=== PATIENT | male | born 1945 | race Caucasian/White ===

== ENCOUNTER → 2017-12-14 08:18 | Outpatient (CLI) | payer OTHER, SELFPAY ==
[2017-12-14 09:44] LABS: Hemoglobin A1C% w Est Avg Glu 6.2 % (4.0-6.0)
[2017-12-14 09:50] LABS: Alanine Aminotransferase 37 IU/L (21-72); Albumin 3.9 g/dL (3.5-5.0); Albumin Globulin Ratio 1.4 (1.0-2.8); Alkaline Phosphatase 69 U/L (38-126); Aspartate Aminotransferase 24 IU/L (17-59); Bilirubin Total 0.4 mg/dL (0.2-1.3); Blood Urea Nitrogen 16 mg/dL (9-20); Calcium 8.5 mg/dL (8.4-10.2); Carbon Dioxide 29 mmol/L (22-32); Chloride 102 mmol/L (98-107); Cholesterol 118 mg/dL (140-199); Estimated Glomerular Filt Rate > 60.0 mL/min (>60); Globulin 2.7 g/dL (1.7-4.1); Glucose 118 mg/dL (80-110); HDL Cholesterol 32 mg/dL (40-60); HEMOLYSIS < 15 (0-50); LDL Cholesterol Calculated 63 mg/dL (<100); Potassium 4.3 mmol/L (3.4-5.1); Sodium 141 mmol/L (137-145); Total Protein 6.6 g/dL (6.3-8.2); Triglycerides 114 mg/dL (35-150)
== END ==
PROVIDERS: PCP Internal Medicine; Visit Provider Internal Medicine
DX: E03.9 Hypothyroidism, unspecified (principal); E11.51 Type 2 diabetes mellitus with diabetic peripheral angiopathy without gangrene; E11.69 Type 2 diabetes mellitus with other specified complication; E78.5 Hyperlipidemia, unspecified; I10 Essential (primary) hypertension; I25.10 Atherosclerotic heart disease of native coronary artery without angina pectoris
CPT/HCPCS: 36415; 80053; 80061; 83036; 84443

== ENCOUNTER → 2018-05-21 11:23 | Outpatient (CLI) | payer OTHER, SELFPAY ==
--- NOTE | 2018-05-21 | DI.RAD.S_ITS ---
PROCEDURE: XR KNEE RT 3V INDICATIONS: RIGHT KNEE PAIN TECHNIQUE: 3 views of the knee were acquired. COMPARISON: None. FINDINGS: Bones: No fractures or dislocations. No suspicious bony lesions. Soft tissues: No joint effusion. No suspicious soft tissue calcifications. IMPRESSION: No source of knee pain is seen except for what appears to be a mild degree of thinning of the joint space at the lateral facet of the patellofemoral joint. Dictated by: Darius Stern M.D. on 05/21/2018 at 13:26 Approved by: Darius Stern M.D. on 05/21/2018 at 13:26
== END ==
PROVIDERS: PCP Internal Medicine; Visit Provider Internal Medicine
DX: M25.561 Pain in right knee (principal)
CPT/HCPCS: 73562

== ENCOUNTER → 2018-11-29 11:08 | Outpatient (CLI) | payer OTHER, SELFPAY ==
--- NOTE | 2018-11-29 | DI.CT.S_ITS ---
PROCEDURE: CT ABDOMEN PELVIS WO CON INDICATIONS: KIDNEY STONES TECHNIQUE: Noncontrast 5 mm thick sections acquired from the diaphragms to the symphysis. 5 mm coronal and sagittal reformats were then performed. For radiation dose reduction, the following was used: automated exposure control, adjustment of mA and/or kV according to patient size. COMPARISON: None. FINDINGS: Image quality: Excellent. ABDOMEN: Lung bases: Lung bases are clear. Heart size is normal. Anterior chest metallic foreign bodies compatible with sternotomy wires/surgical clips. Solid organs: Liver is normal in size. Gallbladder is unremarkable. Pancreas is normal in contours. Spleen is normal in size. No adrenal nodules. Kidneys are normal in size, without hydronephrosis or nephrolithiasis. There is a 2.7 cm oval cyst arising from the lateral interpolar region of the right kidney measuring -4 Hounsfield units in attenuation. Peritoneum and bowel: Unenhanced bowel loops demonstrate normal wall thickness and caliber. No free fluid or air. Normal appendix best seen on axial image 58 of series 2. Diffuse colonic diverticulosis, worst within the descending and sigmoid colon. Nodes and vessels: There is moderate diffuse calcified plaque of the abdominal aorta and branch vessels. There is an infrarenal abdominal aortic aneurysm with the infrarenal abdominal aorta measuring 4.0 cm anteroposterior by 4.0 cm transverse. Miscellaneous: Subcentimeter fat containing umbilical hernia. PELVIS: Genitourinary: There is an indistinct and difficult to measure mass/abnormal bladder wall thickening along the left anterior inferior bladder wall measuring approximately 2.7 cm transverse by 1.5 cm anteroposterior by 0.8 cm craniocaudal and demonstrating punctate peripheral calcifications; this is best seen on axial image 84 of series 2 and coronal image 37 of series 4. Miscellaneous: Small bilateral fat-containing indirect inguinal hernias. Bones: No suspicious bony lesions. No vertebral body compression fractures. Mild/moderate multilevel degenerative changes of the imaged thoracic and lumbar spine. IMPRESSION: 1. 2.7 cm x 1.5 cm x 0.8 cm irregular indistinct difficult to measure mass versus abnormal thickening of the left anteroinferior bladder wall with punctate peripheral calcifications, concerning for bladder carcinoma. Consider contrast-enhanced CT with urinary excretion phase or MRI for further evaluation. Consider urology consult and possible cystoscopy. 2. 4.0 cm x 4.0 cm infrarenal abdominal aortic aneurysm. 3. Additional findings as described above, including small bilateral fat-containing indirect inguinal hernias, and diffuse colonic diverticulosis without evidence of acute diverticulitis. Findings discussed with Dr. Reed Bourgeois, on-call provider for referring provider Dr. Sonya Mo, by telephone by Dr. Garza at approximately 1:35 PM on 11/29/18. Dictated by: Artur Garza M.D. on 11/29/2018 at 13:06 Approved by: Artur Garza M.D. on 11/29/2018 at 13:46
== END ==
PROVIDERS: PCP Internal Medicine; Visit Provider Internal Medicine
DX: N20.0 Calculus of kidney (principal); R31.0 Gross hematuria; N32.89 Other specified disorders of bladder; I71.4 Abdominal aortic aneurysm, without rupture; K40.20 Bilateral inguinal hernia, without obstruction or gangrene, not specified as recurrent; K57.30 Diverticulosis of large intestine without perforation or abscess without bleeding
CPT/HCPCS: 74176

== ENCOUNTER → 2022-11-24 11:18 | Outpatient (CLI) | payer OTHER, SELFPAY ==
--- NOTE | 2022-11-24 | DI.MG.S_ITS ---
MALE BILATERAL DIGITAL DIAGNOSTIC MAMMOGRAM 3D/2D: 11/24/2022 CLINICAL: Bilateral pain at nipples x's 2 months, L>R. No prior exams were available for comparison. There is gynecomastia in both breasts that correlates with reported pain and reported tenderness. No significant masses, calcifications, or other findings are seen in either breast. IMPRESSION: BENIGN There is no mammographic evidence of malignancy. This exam was interpreted at Station ID: [id number]. NOTE: For mammograms, a report in lay terms will be sent to the patient. Approximately 15% of breast malignancies will not be visualized mammographically. In the management of a palpable breast mass, a negative mammogram must not discourage biopsy of a clinically suspicious lesion. Electronically Signed By: Jailyn hector/lydia:11/24/2022 12:55:48 letter sent: Clinical Evaluation ACR BI-RADS Category 2: Benign Finding(s) 3342F
== END ==
PROVIDERS: PCP Internal Medicine; Referring Provider Internal Medicine; Visit Provider Internal Medicine
DX: N64.4 Mastodynia (principal); N63.0 Unspecified lump in unspecified breast
CPT/HCPCS: 77066; G0279

== ENCOUNTER 2023-02-14 14:24 | Emergency (ER) | payer OTHER, SELFPAY ==
[2023-02-14 14:28] VITALS: BP 146/64; PULSE 69; RESP 14; TEMP 36.4; O2SAT 98; BMI 32.4
--- NOTE | 2023-02-14 14:35 | DI.RAD.S_ITS ---
PROCEDURE: XR CHEST 1V INDICATIONS: chest pain TECHNIQUE: One view of the chest was acquired. COMPARISON: [facility], , CHEST 1 VIEW, 04/23/2017, 12:13. FINDINGS: Surgical changes and devices: Sternal wires and hilar clips. Lungs and pleura: Lungs are clear. No pleural effusions or pneumothorax. Mediastinum: Mediastinal contours appear normal. Heart size is normal. Bones and chest wall: No suspicious bony lesions. Overlying soft tissues appear unremarkable. IMPRESSION: No acute pulmonary process. Dictated by: Karli Mckinnon M.D. on 02/14/2023 at 15:36 Approved by: Karli Mckinnon M.D. on 02/14/2023 at 15:36
[2023-02-14 14:54] LABS: Prothrombin Time 11.5 SECONDS (9.4-12.5)
[2023-02-14 14:57] LABS: PTT Partial Thromboplastin Tim 26 SECONDS (25.1-36.5)
[2023-02-14 15:00] LABS: Alanine Aminotransferase 28 IU/L (<50); Albumin 3.8 g/dL (3.5-5.0); Albumin Globulin Ratio 1.3 (1.0-2.8); Alkaline Phosphatase 49 U/L (38-126); Bilirubin Total 0.5 mg/dL (0.2-1.3); Blood Urea Nitrogen 27 mg/dL (9-20); Calcium 9.2 mg/dL (8.4-10.2); Carbon Dioxide 28 mmol/L (22-32); Chloride 102 mmol/L (98-107); Creatine Kinase 537 U/L (55-170); Estimated Glomerular Filt Rate 51 mL/min (>60); Globulin 2.9 g/dL (1.7-4.1); Glucose 136 mg/dL (80-110); HEMOLYSIS < 15 (0-50); Lipase 128 U/L (23-300); Magnesium 2.3 mg/dL (1.6-2.3); Potassium 4.5 mmol/L (3.4-5.1); Sodium 137 mmol/L (137-145); Total Protein 6.7 g/dL (6.3-8.2)
[2023-02-14 15:02] LABS: Add Manual Diff / Slide Review NO; Basophils Absolute Auto 0 /uL (0-100); Basophils Percent Auto 0.3 % (0-2); Eosinophils Absolute Auto 0 /uL (0-450); Eosinophils Percent Auto 0.3 % (2-4); Hematocrit 38.7 % (41-53); Hemoglobin 12.9 g/dL (13.5-17.5); Lymphocytes Absolute Auto 1200 /uL (1100-4500); Lymphocytes Percent Auto 9.8 % (25-40); Mean Corpuscular HGB Conc 33.4 % (30-36); Mean Corpuscular Hemoglobin 30.6 PG (26-34); Mean Corpuscular Volume 91.4 fL (80-100); Monocytes Absolute Auto 700 /uL (0-900); Monocytes Percent Auto 5.6 % (3-14); Neutrophils Absolute Auto 10500 /uL (1500-7000); Platelet Count 220 X10^3/uL (150-400); Red Blood Cell Count 4.23 X10^6/uL (4.5-5.9); Red Cell Distribution Width 12.9 % (11.6-14.8); White Blood Cell Count 12.5 X10^3/uL (4.5-11.0)
--- NOTE | 2023-02-14 15:10 | PC.NURSE ---
Pt came to the ED today because he started having what he describes as a hot flash and dizziness. pt describes the episode as him standing at check out and he became suddenly diaphoretic, dizzy and had to put a bag of frozen mohawk fries on his forehead. Pt states that his sx have now resolved, but he was not able to get a bp on his right arm. Pt's called gardening supervisor and they were advised to seek medical care at the emergency dept. Pt has extensive cardiac hx including coronary artery bipass surgery in 2007, a known plexus blockage, DVTs and stents. Pt also has hx of stroke in 2009. Pt denies any cp, sob, n/v at this time. at bedside. Pt a&ox4.
[2023-02-14 15:12] LABS: Troponin I < 0.012 ng/mL (0.01-0.034)
--- NOTE | 2023-02-14 15:39 | ED_ITS ---
HPI - Chest Pain General Chief Complaint: Chest Pain Stated Complaint: heart issues / low at home bp 100/49 Time Seen by Provider: 02/14/23 15:19 Source: patient Mode of arrival: Ambulatory Limitations: no limitations History of Present Illness HPI narrative: Patient is a 77-year-old male. Has known history of ?vascular problems?. He states he has blockages in his right lower extremity and in his right upper extremity. He states that at baseline his right upper extremity blood pressure is less than the left. He is followed by vascular surgery. He has not on blood thinners but does take an aspirin. He does have a history of coronary artery disease. Has had a bypass graft in the past and has been told that he potentially will need a valve replacement at some point. He states he was at his normal state of health. At a local grocery store when he had a sudden onset of lightheadedness. He states it was not a vertigo sensation. He did not pass out. During the time he did not have chest pain, palpitations, shortness of breath. He did have to sit down for approximately 10 minutes. He became somewhat diaphoretic during this time. He was able to drive home with his window down and that seemed to help his symptoms. When he arrived home he was feeling better but not back to normal. He took his blood pressure and it was less than normal l blood pressure in his left arm but he could not get a reading of the blood pressure and his right arm. Because this is what brought him into the emergency department. By the time I evaluated him he stated that he was feeling much better but only felt somewhat fatigued. Related Data Home Medications Medication Instructions Recorded Confirmed ASPIRIN (#ASPIR-AUBREY) 325 mg PO Q DAY ##0 05/25/11 amlodipine 5 mg tablet 5 mg PO DAILY 12/12/17 12/12/17 atorvastatin 80 mg tablet 80 mg PO DAILY 12/12/17 12/12/17 Previous Rx's Medication Instructions Recorded Ketoconazole 0 topical BID ##30 08/28/16 meclizine 25 mg tablet 25 mg PO Q8H PRN #100 tabs 04/25/17 lisinopril 20 mg tablet 40 mg (2 x 20 mg) PO QDAY #180 tabs 10/25/17 metformin 500 mg tablet 500 mg PO QAM #90 tabs 10/22/18 (Glucophage) levothyroxine 125 mcg tablet 125 mcg PO QAM #90 tabs 01/14/18 (Levoxyl) losartan 50 mg tablet 50 mg PO BID #180 tabs 01/14/18 metoprolol tartrate 50 mg tablet 50 mg PO BID #180 tabs 01/14/18 Review of Systems Review of Systems ROS Unobtainable: All systems reviewed & are unremarkable except as noted in HPI and below Patient History Surgical History (Updated 06/12/17 @ 06:23 by Conversion Provider) Status post coronary artery bypass graft (10/04/07) Family History (Updated 02/23/15 @ 00:00 by Conversion Provider) Brother Heart disease Social History Smoking Status: Former smoker Smoking Status: Former smoker alcohol intake frequency: other Substance Use Type: does not use Exam Initial Vital Signs Initial Vital Signs: Vital Signs Temperature 97.5 F L 02/14/23 14:28 Pulse Rate 69 02/14/23 14:28 Respiratory Rate 14 02/14/23 14:28 Blood Pressure 146/64 H 02/14/23 14:28 Pulse Oximetry 98 02/14/23 14:28 Oxygen Delivery Method Room Air 02/14/23 14:28 Const General: cooperative, comfortable and No ill appearing HENWA Head: normal to inspection and normocephalic Resp Effort & Inspection: normal respiratory effort Auscultation: clear to auscultation bilaterally Cardio Rate: regular rate Rhythm: regular rhythm Heart Sounds: murmur GI Inspection: normal to inspection and non-distended Neuro General: patient alert, patient awake and moves all extremities Speech: speech normal Extrem General: No edema Course Orders Ordered: ED Orders 02/14/23 14:35 XR chest 1V Stat EKG-12 Lead Stat 02/14/23 14:38 Complete Blood Count AUTO DIFF Stat Comprehensive Metabolic Panel Stat Lipase Stat Magnesium Stat PTT Partial Thromboplastin Donn Stat Prothrombin Time INR Stat Troponin & CK Cardiac Panel Stat 02/14/23 15:45 CT angio chest abdomen pelvis Stat Vital Signs Vital signs: Vital Signs - 8 hr 02/14/23 14:28 02/14/23 17:17 Temperature 97.5 F L 98.4 F Pulse Rate 69 65 Respiratory Rate 14 20 Blood Pressure 146/64 H 146/65 H Pulse Oximetry 98 99 Oxygen Delivery Method Room Air Room Air [facility] - Chest Pain Lab Data Attestation: I reviewed the patient's lab results. 02/14/23 14:38 02/14/23 14:38 Labs: Lab Results 02/14/23 Range/Units 14:38 WBC 12.5 H (4.5-11.0) X10^3/uL RBC 4.23 L (4.5-5.9) X10^6/uL Hgb 12.9 L (13.5-17.5) g/dL Hct 38.7 L (41-53) % MCV 91.4 (80-100) fL MCH 30.6 (26-34) PG MCHC 33.4 (30-36) % RDW 12.9 (11.6-14.8) % Plt Count 220 (150-400) X10^3/uL Neut % (Auto) 84.0 H (50-75) % Lymph % (Auto) 9.8 L (25-40) % Lea % (Auto) 5.6 (3-14) % Eos % (Auto) 0.3 L (2-4) % Baso % (Auto) 0.3 (0-2) % Neut # (Auto) 83250 H (8968-3406) /uL Lymph # (Auto) 1200 (7249-0805) /uL Lea # (Auto) 700 (0-900) /uL Eos # (Auto) 0 (0-450) /uL Baso # (Auto) 0 (0-100) /uL PT 11.5 (9.4-12.5) SECONDS INR 1.0 (0.9-1.3) APTT 26 (25.1-36.5) SECONDS Sodium 137 (137-145) mmol/L Potassium 4.5 (3.4-5.1) mmol/L Chloride 102 (98-107) mmol/L Carbon Dioxide 28 (22-32) mmol/L BUN 27 H (9-20) mg/dL Creatinine 1.42 H (0.66-1.25) mg/dL Estimated GFR 51 L (>60) mL/min BUN/Creatinine Ratio 19.0 (6-22) Glucose 136 H (80-110) mg/dL Calcium 9.2 (8.4-10.2) mg/dL Magnesium 2.3 (1.6-2.3) mg/dL Total Bilirubin 0.5 (0.2-1.3) mg/dL AST TNP ALT 28 (<50) IU/L Alkaline Phosphatase 49 (38-126) U/L Total Creatine Kinase 537 H (55-170) U/L Troponin I < 0.012 (0.01-0.034) ng/mL Total Protein 6.7 (6.3-8.2) g/dL Albumin 3.8 (3.5-5.0) g/dL Globulin 2.9 (1.7-4.1) g/dL Albumin/Globulin Ratio 1.3 (1.0-2.8) Lipase 128 (23-300) U/L Urine Dip Bedside Urine Glucose Negative Bedside Urine Bilirubin - Negative Bedside Urine Ketone - Negative Urine Specific [place] 1.025 Bedside Urine Occult Blood + Bedside Urine pH 5.5 Bedside Urine Protein - Negative Bedside Urine Urobilinogen - Negative Bedside Urine Nitrite - Negative Bedside Urine Leukocytes - Negative Esterase Imaging Data Chest x-ray: Radiologist's Impression: PROCEDURE: XR CHEST 1V INDICATIONS: chest pain TECHNIQUE: One view of the chest was acquired. COMPARISON: [facility], CR, CHEST 1 VIEW, 04/23/2017, 12:13. FINDINGS: Surgical changes and devices: Sternal wires and hilar clips. Lungs and pleura: Lungs are clear. No pleural effusions or pneumothorax. Mediastinum: Mediastinal contours appear normal. Heart size is normal. Bones and chest wall: No suspicious bony lesions. Overlying soft tissues appear unremarkable. IMPRESSION: No acute pulmonary process. CT scan - chest: Radiologist's Impression: PROCEDURE: CT ANGIO CHEST ABDOMEN PELVIS INDICATIONS: eval for TAD TECHNIQUE: Precontrast 5 mm thick sections acquired from the lung apices to the iliac crests. After the administration of intravenous contrast, 2.5 mm thick sections again acquired from the lung apices to the iliac crests. Maximum intensity projection (MIP) oblique sagittal and coronal reformats were then acquired. For radiation dose reduction, the following was used: automated exposure control. COMPARISON: [facility], CT, CT ABDOMEN PELVIS WO CON, 11/29/2018, 11:17. FINDINGS: Image quality: Diagnostic. AORTA: The thoracic aorta demonstrates moderate diffuse plaque causing mild diffuse stenosis without aneurysm or dissection. There is an infrarenal abdominal aortic aneurysm with moderate mural thrombus, and a maximal short axis diameter of roughly 45 mm. CHEST: Lower Neck: No enlarged lymph nodes. Thyroid: No thyroid nodules which require sonographic evaluation. Axillae: No enlarged lymph nodes. Chest Wall: Unremarkable. Lungs and Pleura: No pneumothorax or pleural effusions. No evidence of pneumonia. 6 mm subpleural nodule within the right middle lobe adjacent to the minor fissure. Heart: Heart size is normal. No pericardial effusion. Calcification of the coronary vasculature is present. Thoracic Vessels: Pulmonary arteries demonstrate normal size. Mediastinum and Indigo: No enlarged lymph nodes. There is relative narrowing of the transverse diameter of the intrathoracic trachea, compatible with sequelae of COPD. Esophagus: No wall thickening. No hiatal hernia. ABDOMEN: Liver: No solid mass. Gallbladder: Gallbladder is decompressed. No biliary ductal dilatation. Biliary ducts: No biliary dilation. Pancreas: No ductal dilation. Spleen: Size is within normal limits. Adrenal Glands: No adrenal nodules. Kidneys and Ureters: No hydronephrosis. No solid mass. No complex renal cystic lesion which requires follow up. Stomach and Bowel: Normal colonic caliber, without significant wall thickening. Appendix is within normal limits. Diverticulosis of the descending and sigmoid colon. Peritoneum: No abnormal intraperitoneal fluid. No free air. Ventral Wall: No hernia. Abdominal Nodes: No retroperitoneal or mesenteric adenopathy by size criteria. Vessels: Inferior vena cava is normal in size. PELVIS: Pelvic Organs: Unremarkable. Bladder: Unremarkable. Pelvic Nodes: No enlarged lymph nodes. Miscellaneous: No inguinal hernias are seen. Bones: Unremarkable. IMPRESSION: 1. No acute process. 2. Coronary artery disease. 3. Right middle lobe pulmonary nodule. Follow-up is recommended as below. 4. Normal appendix. 5. Infrarenal abdominal aortic aneurysm. ECG Data Attestation: I personally reviewed and interpreted this ECG as follows: Interpretation: Sinus rhythm Ventricular rate is 62 First-degree AV block OR interval 2 and [address] T wave changes MDM Narrative Medical decision making narrative: Blood pressure is now normal in his left upper extremity in his normal for him in his right upper extremity. During the event he did not have chest pain, palpitations or lightheadedness. He now is only feeling fatigued. His labs are unremarkable. Chest x-ray is unremarkable. CT scan of his chest was to evaluate for any potential aortic dissection/aneurysm. He does not have any thoracic aneurysm. He does not have any abdominal tenderness. Has good pulses bilateral upper extremities. Unsure of the exact etiology of the patient's symptoms however had a long discussion with him regarding this. Plan will be to discharge patient home with instructions to contact his primary doctor, vascular surgeon and also recommendations for follow-up with Cardiology. He was given return precautions. He expressed understanding and agreement. Discharge Plan Departure Patient Disposition: Home Clinical Impression: Lightheadedness, Lung nodule Instructions: DI for Dizziness-Nonvertigo Activity Restrictions/Additional Instructions: Recommend that you continue to take all of your medications as directed. You have an incidental finding of a 6 mm lung nodule in the right middle lobe. You need to contact your primary doctor about this for follow-up. Contact your vascular surgeon for follow-up as well. Return to the emergency department for new or worsening symptoms. Prescriptions: No Action ASPIRIN (#ASPIR-AUBREY) 325 mg PO Q DAY Qty: 0 Ketoconazole 0 Topical BID Qty: 30 1RF meclizine 25 MG tablet 25 mg PO Q8H PRNQty: 100 0RF lisinopril 20 mg tablet 40 mg PO QDAY Qty: 180 1RF metformin [Glucophage] 500 mg tablet 500 mg PO QAM Qty: 90 0RF levothyroxine [Levoxyl] 125 mcg tablet 125 mcg PO QAM Qty: 90 3RF metoprolol tartrate 50 mg tablet 50 mg PO BID Qty: 180 3RF losartan 50 mg tablet 50 mg PO BID Qty: 180 3RF atorvastatin 80 mg tablet 80 mg PO DAILY amlodipine 5 mg tablet 5 mg PO DAILY Referrals: Sonya Mo ARNP [Primary Care Provider] - Stand Alone Forms: Patient Portal/API
--- NOTE | 2023-02-14 15:45 | DI.CT.S_ITS ---
PROCEDURE: CT ANGIO CHEST ABDOMEN PELVIS INDICATIONS: eval for TAD TECHNIQUE: Precontrast 5 mm thick sections acquired from the lung apices to the iliac crests. After the administration of intravenous contrast, 2.5 mm thick sections again acquired from the lung apices to the iliac crests. Maximum intensity projection (MIP) oblique sagittal and coronal reformats were then acquired. For radiation dose reduction, the following was used: automated exposure control. COMPARISON: [facility], CT, CT ABDOMEN PELVIS WO CON, 11/29/2018, 11:17. FINDINGS: Image quality: Diagnostic. AORTA: The thoracic aorta demonstrates moderate diffuse plaque causing mild diffuse stenosis without aneurysm or dissection. There is an infrarenal abdominal aortic aneurysm with moderate mural thrombus, and a maximal short axis diameter of roughly 45 mm. CHEST: Lower Neck: No enlarged lymph nodes. Thyroid: No thyroid nodules which require sonographic evaluation. Axillae: No enlarged lymph nodes. Chest Wall: Unremarkable. Lungs and Pleura: No pneumothorax or pleural effusions. No evidence of pneumonia. 6 mm subpleural nodule within the right middle lobe adjacent to the minor fissure. Heart: Heart size is normal. No pericardial effusion. Calcification of the coronary vasculature is present. Thoracic Vessels: Pulmonary arteries demonstrate normal size. Mediastinum and Indigo: No enlarged lymph nodes. There is relative narrowing of the transverse diameter of the intrathoracic trachea, compatible with sequelae of COPD. Esophagus: No wall thickening. No hiatal hernia. ABDOMEN: Liver: No solid mass. Gallbladder: Gallbladder is decompressed. No biliary ductal dilatation. Biliary ducts: No biliary dilation. Pancreas: No ductal dilation. Spleen: Size is within normal limits. Adrenal Glands: No adrenal nodules. Kidneys and Ureters: No hydronephrosis. No solid mass. No complex renal cystic lesion which requires follow up. Stomach and Bowel: Normal colonic caliber, without significant wall thickening. Appendix is within normal limits. Diverticulosis of the descending and sigmoid colon. Peritoneum: No abnormal intraperitoneal fluid. No free air. Ventral Wall: No hernia. Abdominal Nodes: No retroperitoneal or mesenteric adenopathy by size criteria. Vessels: Inferior vena cava is normal in size. PELVIS: Pelvic Organs: Unremarkable. Bladder: Unremarkable. Pelvic Nodes: No enlarged lymph nodes. Miscellaneous: No inguinal hernias are seen. Bones: Unremarkable. IMPRESSION: 1. No acute process. 2. Coronary artery disease. 3. Right middle lobe pulmonary nodule. Follow-up is recommended as below. 4. Normal appendix. 5. Infrarenal abdominal aortic aneurysm. Fleischner Society criteria for SOLID lung nodule followup. Nodule size (mm)Low-risk patientHigh-risk patient<6 (single or multiple)No routine followup.Optional CT at 12 months. 6-8 (single or multiple)CT at 6-12 months, then optional CT at 18-24 mo.CT at 6-12 months, then CT at 18-24 months. >8 (single)CT, PET-CT, or biopsy at 3 months. Same as for low-risk pts. >8 (multiple)CT at 3-6 months, then optional CT at 18-24 mo.CT at 3-6 months, then CT at 18-24 months. Fleischner Society criteria for SUB-SOLID lung nodule followup. Solitary pure ground-glass nodules<6 mm (ground glass or part solid)No followup needed. 6 mm or larger (ground glass)CT at 6-12 months to confirm persistence, then CT every 2 years until 5 years.6 mm or larger (part solid)CT at 3-6 months to confirm persistence, then annual CT until 5 years if unchanged and solid component remains <6 mm. Multiple sub-solid nodules<6 mmCT at 3-6 months, then CT consider at 2 & 4 years for high risk patients. [address] at 3-6 months. Subsequent management based on most suspicious lesions. Recommendations do not apply to lung cancer screening, patients with immunosuppression, or patients with known primary cancer. Dictated by: Seamus Oreilly M.D. on 02/14/2023 at 16:19 Approved by: Seamus Oreilly M.D. on 02/14/2023 at 16:30
[2023-02-14 17:17] VITALS: BP 146/65; PULSE 65; RESP 20; TEMP 36.9; O2SAT 99
[2023-02-16 15:51] LABS: Aspartate Aminotransferase 36 IU/L (17-59)
== END 2023-02-14 17:20 | disposition home or self-care (01) ==
PROVIDERS: Emergency Provider Emergency Medicine; PCP Internal Medicine
DX: R42 Dizziness and giddiness (principal); I44.0 Atrioventricular block, first degree; R91.1 Solitary pulmonary nodule
CPT/HCPCS: 36415; 71045; 71275; 74174; 80053; 81003; 82550; 83690; 83735; 84484; 85025; 85610; 85730; 93005; 99284

== ENCOUNTER → 2023-11-21 14:23 | Outpatient (CLI) | payer OTHER, SELFPAY ==
--- NOTE | 2023-12-10 16:36 | DIET.OUTPTC ---
Dietary Outpatient Consultation Note Consultation Date: 11/21/2023 Assessment: 77 y M referred to dietitian for DM type 2, HTN, HLD. Austyn and Eliana present for visit. Reports is still experiencing low BPs in afternoon. Is working with PCP and cardiology to taper off some BP medications slowly. Pt has some improvement in energy level, but still experiences low energy in afternoon. Difficult to determine sodium amount he is having regularly, varies daily depending on pt meal selections, size, and whether or not he prolongs meal time and has 1 meal over 2. Recently got waffles to try at breakfast. Pt follows a 3-4 carb serving at 3 meals and 1-2 at bedtime snack. Has gone to DM classes in past and has resource book. Recent A1c 6.1% on 08/22/23. Is on metformin. Diet recall: B-potatoes, eggs, veg - no added salt or sometimes leftovers or pb and crackers L-carrots, cucumbers, fruit, low sodium dressing or sometimes pb and crackers D protein, carb, veg snack- small cookies (oreo size) 2-3 to take w/ meds Ht: 5 ft 5 in Wt: 178 lb BMI: 29.6 UBW: Reports 190-192 lb before diet/lasix started Nutrition Diagnosis: Nutrition related knowledge deficit related to new change in dietary patterns aeb assessement, pt started low sodium diet d/t CHF and HTN Interventions: Discussed following topics and provided resources: -Consistent sodium intake with meals <600 mg sodium. -Avoiding too low of sodium (<1500 mg/day). Reach range of 5336-4485 mg sodium/day -Discussed adequate fluid -Determining portion sizes of waffles to fit consistent CHO pattern and appropriate sodium intake Goal: -They have tracked sodium intake when he first started on low sodium diet - new [facility] [place] they do diet recall with tracking meal and daily sodium intake for 3-4 days again along with BPs and bring in for more accurate assessment EER: 3253-5706 mg sodium, 3-4 CHO at meals, 1-2 at snacks Monitoring/Evaluations: weight, BP, labs, diet recall Electronically Signed by: Christin Avendano 12/10/23 16:36 Clinical Dietitian [address] [id number]
== END ==
PROVIDERS: PCP Internal Medicine; Referring Provider Internal Medicine
DX: E11.9 Type 2 diabetes mellitus without complications (principal); E78.5 Hyperlipidemia, unspecified; Z79.84 Long term (current) use of oral hypoglycemic drugs; Z71.3 Dietary counseling and surveillance; I50.9 Heart failure, unspecified; I11.0 Hypertensive heart disease with heart failure; Z68.29 Body mass index [BMI] 29.0-29.9, adult
CPT/HCPCS: 97803

== ENCOUNTER → 2024-01-02 14:00 | Outpatient (CLI) | payer OTHER, SELFPAY ==
--- NOTE | 2024-01-03 13:57 | DIET.OUTPTC ---
Dietary Outpatient Consultation Note Consultation Date: 01/02/2024 Assessment: 77 y M referred to dietitian for DM type 2, HTN, HLD. Austyn and Eliana present for visit. Report improvements in energy level and BP. Is off all BP meds except one, which dose has been reduced. Diet recall shows 1624-4138 mg sodium daily, with around 500 mg at meals. Austyn and Eliana are feeling confident in checking labels and making meals that provide adequate energy, but are within sodium range. He has now been able to re-focus on ensuring his dietary pattern remains carb consistent as well. Reports weight has been consistent. Records daily weight and BP Today we discussed lipid levels and physical activity. Pt reports no activity restrictions. Is mostly back to his usual daily movements (i.e. household activity/tasks and walking into store) Pt follows a 3-4 carb serving at 3 meals and 1-2 at bedtime snack. Has gone to DM classes in past and has resource book. Recent A1c 6.1% on 08/22/23. Is on metformin. Diet recall: B-potatoes, eggs, veg - no added salt or sometimes leftovers or pb and crackers L-carrots, cucumbers, fruit, low sodium dressing + pb and crackers D protein, carb, veg snack- small cookies (oreo size) 2-3 to take w/ meds Ht: 5 ft 5 in Wt: 180 lb BMI: 29.6 UBW: Reports 190-192 lb before diet/lasix started Nutrition Diagnosis: (initial dx - improved) Nutrition related knowledge deficit related to new change in dietary patterns aeb assessement, pt started low sodium diet d/t CHF and HTN Interventions: Discussed following topics and provided resources: -Saturated vs unsaturated fats and label reading -Adequate physical activity as cleared by wool cleaner w/ goal of 150 minutes per week EER: 1507-8254 mg sodium, 3-4 CHO at meals, 1-2 at snacks Monitoring/Evaluations: f/u yearly or PRN Electronically Signed by: Christin Avendano 01/03/24 13:57 Clinical Dietitian [address] [id number]
== END ==
LOC: DIET 14:00
PROVIDERS: PCP Internal Medicine; Referring Provider Internal Medicine
DX: E11.9 Type 2 diabetes mellitus without complications (principal); I10 Essential (primary) hypertension; E78.5 Hyperlipidemia, unspecified; Z71.3 Dietary counseling and surveillance; Z68.29 Body mass index [BMI] 29.0-29.9, adult; Z79.4 Long term (current) use of insulin
CPT/HCPCS: 97803